=== PATIENT | female | born 1975 | race Caucasian/White ===

== ENCOUNTER 2023-06-08 12:08 | Emergency (ER) | payer BC, SELFPAY ==
[2023-06-08 12:15] VITALS: BP 95/76; PULSE 84; RESP 18; TEMP 36.6; O2SAT 100
--- NOTE | 2023-06-08 12:45 | DI.RAD_ITS ---
Exam(s) XR LUMBAR SPINE AP, LAT EXAM: XR LUMBAR SPINE AP, LAT CLINICAL HISTORY: fall. TECHNIQUE: 2D digital imaging was performed. Five views. COMPARISON: No exams were available for comparison FINDINGS: BONES: No fracture or destructive lesion. Vertebral body heights are maintained. facet hypertrophy L 5-S1. Small endplate osteophytes. DISKS: Intervertebral disc spaces are maintained. ALIGNMENT: Mild scoliosis SOFT TISSUE: 2 stones are visible projecting at the lower pole of the left kidney. Cholecystectomy c lips in right upper quadrant. IMPRESSION: No acute abnormality of the lumbar spine. Left nephrolithiasis. DATA REPOSITORY: RADIATION DOSE DELIVERED:
--- NOTE | 2023-06-08 12:47 | ED.GENADUL_ITS ---
Discharge Plan Disposition Patient Disposition: Home Discharge Details Clinical Impression: Low back pain Primary Care Provider: None,None ED Provider: Sheldon Bullock Home Meds and New Rx's Prescriptions: No Action verapamil 240 mg Tablet Extended Release 240 mg PO QAM metformin 500 mg Tablet 500 mg PO BID sumatriptan succinate 100 mg Tablet 100 mg PO PRN PRN trazodone 100 mg Tablet 100 mg PO QHS buspirone 30 mg Tablet 30 mg PO DAILY gabapentin 300 mg Capsule 300 mg PO TID omeprazole 20 mg Capsule,Delayed Release(Dr/Ec) 20 mg PO DAILY montelukast 10 mg Tablet 10 mg PO DAILY hydrochlorothiazide 25 mg Tablet 25 mg PO DAILY albuterol 90 mcg/actuation Aerosol 90 mcg INHALATION BID ergocalciferol (vitamin D2) 1,250 mcg (50,000 unit) Capsule 1,250 mcg PO QWEEK ondansetron 4 mg Tablet,Disintegrating 4 mg PO PRN PRN topiramate 100 mg Tablet 100 mg PO BID multivitamin Capsule 1 cap PO DAILY loratadine 10 mg Tablet 10 mg PO DAILY tizanidine 4 mg Capsule 4 mg PO DAILY Emgality Pen 120 mg/mL Pen Injector 120 mg SUBCUT QMONTH sertraline 150 mg Capsule 150 mg PO DAILY Discharge Instructions Instructions: Low Back Strain (ED) Additional Instructions: Please continue taking all your regular medications. Recommended to get some lidocaine patches that are [id number] and use once a day for 12 hours. Also recommend that you take Tylenol every 6 hours for the pain as well as some ibuprofen. Do not apply any cold packs or any heat over the lidocaine patch. You can do so after the lidocaine patch has been taken off. Please follow your primary care doctor as needed Medical Decision Making 47-year-old status post mechanical fall landing on her coccyx few days ago. Recurrent twisting injury yesterday. Presents with low back pain. X-rays obtained emergency department did not reveal any acute abnormalities. Patient arrived with 8 of 10 pain. Following some analgesia and lidocaine patch in the emergency department feels a lot more comfortable. Patient will be discharged home with lidocaine patches as well as NSAIDs. HPI General Date/Time Provider Initiated Documentation: 06/08/23 12:38 . HPI Narrative: States that she had a fall onto her coccyx few days ago resulting in low back pain. Then again yesterday she twisted in the mild and exacerbated her low back pain. States that she has been having worsening low back pain. No numbness. There is pain radiating down the left buttock area. No focal weakness. Patient is in pain and complaining of spastic issues to the low back. No incontinence. No fevers or chills Related Data Home Medications Medication Instructions Recorded Confirmed albuterol 90 mcg/actuation aerosol 90 mcg inhalation BID 06/08/23 06/08/23 inhaler buspirone 30 mg tablet 30 mg PO DAILY 06/08/23 06/08/23 ergocalciferol (vitamin D2) 1,250 1,250 mcg PO QWEEK 06/08/23 06/08/23 mcg (50,000 unit) capsule gabapentin 300 mg capsule 300 mg PO TID 06/08/23 06/08/23 galcanezumab-gnlm 120 mg/mL 120 mg subcut QMONTH 06/08/23 06/08/23 subcutaneous pen injector (Emgality Pen) hydrochlorothiazide 25 mg tablet 25 mg PO DAILY 06/08/23 06/08/23 loratadine 10 mg tablet 10 mg PO DAILY 06/08/23 06/08/23 metformin 500 mg tablet 500 mg PO BID 06/08/23 06/08/23 montelukast 10 mg tablet 10 mg PO DAILY 06/08/23 06/08/23 multivitamin 1 cap PO DAILY 06/08/23 06/08/23 omeprazole 20 mg capsule,delayed 20 mg PO DAILY 06/08/23 06/08/23 release ondansetron 4 mg disintegrating 4 mg PO PRN PRN 06/08/23 06/08/23 tablet sertraline 150 mg capsule 150 mg PO DAILY 06/08/23 06/08/23 sumatriptan succinate 100 mg tablet 100 mg PO PRN PRN 06/08/23 06/08/23 tizanidine 4 mg capsule 4 mg PO DAILY 06/08/23 06/08/23 topiramate 100 mg tablet 100 mg PO BID 06/08/23 06/08/23 trazodone 100 mg tablet 100 mg PO QHS 06/08/23 06/08/23 verapamil 240 mg tablet,extended 240 mg PO QAM 06/08/23 06/08/23 release Allergies Allergy/AdvReac Type Severity Reaction Status Date / Time No Known Allergies Allergy Unverified 06/08/23 12:20 General Stated Complaint: Nk/Back Pain TERESE: 3 Review of Systems Narrative: 10 point review of system is negative unless otherwise specified in the HPI PFSH All Active Problems (Updated 06/08/23 @ 14:40 by Sheldon Bullock MD) Low back pain (Acute) Social History Smoking risk assessment performed?: No Exam Narrative Exam Narrative: General: A,A Ox3, Calm, no apparent distress, well developed, pleasant and cooperative Head Size/Shape: normocephalic, atraumatic Eyes Pupils: PERRLA Extraocular Mobility: intact and symmetrical Conjunctiva: non-injected, anicteric, no discharge Ears, Nose, Throat Nares: patent bilaterally Oral Cavity: moist Neck: Supple Respiratory Respiratory Effort: no dyspnea Cardiovascular Normal cap refill Abdomen Inspection and Palpation: soft, non-tender, non-distended, no hepatosplenomegaly Musculoskeletal System Joints, Bones, and Muscles: no deformities Extremities: warm and well-perfused, no cyanosis, capillary refill <2 seconds Skin Skin Inspection: no rash, no lesions, no bruising Neurological Motor: normal tone, normal strength, moving all extremities equally Reflexes: deep tendon reflexes 2+ bilaterally, no clonus Psychiatric: good insight, good judgement, normal mood and affect Course Vital Signs Vital signs: Vital Signs Temperature 36.6 C 06/08/23 12:15 Pulse 84 06/08/23 12:15 Respiratory Rate 18 06/08/23 12:15 Blood Pressure 95/76 L 06/08/23 12:15 Pulse Oximetry 100 06/08/23 12:15 Temperature 36.6 C 06/08/23 12:15 Temperature Source Skin 06/08/23 12:15 Pulse 84 06/08/23 12:15 Respiratory Rate 18 06/08/23 12:15 Blood Pressure 95/76 L 06/08/23 12:15 Blood Pressure Position Sitting 06/08/23 12:15 Pulse Oximetry 100 06/08/23 12:15 Oxygen Delivery Method Room Air 06/08/23 12:15 Oxygen Flow Rate 0 06/08/23 12:15 Pain Level 8 06/08/23 12:15
[2023-06-08] MEDS: Ketorolac 30 MG/ML VIAL IM (13:31)
[2023-06-08] MEDS: Lidocaine 5% Patch 1 PATCH (13:31)
[2023-06-08] MEDS: diazePAM 5 MG TAB PO (13:31)
--- NOTE | 2023-06-08 14:23 | DI.VRAD_ITS ---
PROCEDURE INFORMATION: Exam: XR Lumbosacral Spine Exam date and time: 06/08/2023 2:01 PM Age: 47 years old Clinical indication: Pain and injury or trauma; Fall; Blunt trauma (contusions or hematomas); Low back pain TECHNIQUE: Imaging protocol: Radiologic exam of the lumbosacral spine. Views: 2 or 3 views. COMPARISON: No relevant prior studies available. FINDINGS: Bones/joints: Lumbar scoliosis. No acute fractures. Mild spondylosis changes. Soft tissues: Unremarkable. Organs: Left nephrolithiasis. IMPRESSION: No acute fracture. Dictated and Authenticated by: David Guzman MD. Ordering:SALLY Chung MD
== END 2023-06-08 15:03 | disposition home or self-care (01) ==
PROVIDERS: Emergency Provider Emergency Medicine
DX: M54.59 Other low back pain (principal); W19.XXXA Unspecified fall, initial encounter
CPT/HCPCS: 96372; 99284; 72100; J1885

== ENCOUNTER 2023-06-21 13:26 | Emergency (ER) | payer BC, SELFPAY ==
[2023-06-21 13:50] VITALS: BP 120/78; PULSE 86; RESP 18; TEMP 36.5; O2SAT 98
--- NOTE | 2023-06-21 14:42 | ED.GENADUL_ITS ---
Discharge Plan Disposition Patient Disposition: Home Condition: Stable Discharge Details Clinical Impression: Acute infectious diarrhea Primary Care Provider: None,None ED Provider: Tricia Lopez Home Meds and New Rx's Prescriptions: New metronidazole 500 mg tablet 500 mg PO BID Qty: 14 0RF azithromycin 500 mg tablet 500 mg PO DAILY 2 Days Qty: 2 0RF Rx Instructions: start on day 2 of therapy Continued verapamil 240 mg Tablet Extended Release 240 mg PO QAM metformin 500 mg Tablet 500 mg PO BID sumatriptan succinate 100 mg Tablet 100 mg PO PRN PRN trazodone 100 mg Tablet 100 mg PO QHS buspirone 30 mg Tablet 30 mg PO DAILY gabapentin 300 mg Capsule 300 mg PO TID omeprazole 20 mg Capsule,Delayed Release(Dr/Ec) 20 mg PO DAILY montelukast 10 mg Tablet 10 mg PO DAILY hydrochlorothiazide 25 mg Tablet 25 mg PO DAILY albuterol 90 mcg/actuation Aerosol 90 mcg INHALATION BID ergocalciferol (vitamin D2) 1,250 mcg (50,000 unit) Capsule 1,250 mcg PO QWEEK ondansetron 4 mg Tablet,Disintegrating 4 mg PO PRN PRN topiramate 100 mg Tablet 100 mg PO BID multivitamin Capsule 1 cap PO DAILY loratadine 10 mg Tablet 10 mg PO DAILY tizanidine 4 mg Capsule 4 mg PO DAILY Emgality Pen 120 mg/mL Pen Injector 120 mg SUBCUT QMONTH sertraline 150 mg Capsule 150 mg PO DAILY Discharge Instructions Instructions: Acute Diarrhea (ED) Additional Instructions: take antibiotics as prescribed even if you feel better clear liquids advance as tolerated. Referrals: None,None [Primary Care Provider] - (follow up with primary care provider if needed) Discharge Data Discharge Date/Time-TO BE ENTERED AT DEPARTURE: 06/21/23 18:01 Medical Decision Making <Flavio Warren NP - Last Filed: 06/22/23 08:51> Patient presenting to the emergency department for chief complaint of nausea vomiting diarrhea with some abdominal discomfort. Patient states that 6 days ago she drank untreated stream water and then within 24 hours she started having some nausea vomiting and diarrhea. She has tried [id number] Pepto-Bismol and unfortunately did not help symptoms and only has some worsening. She has started feeling weak and having some extremity tingling. Physical exam shows left upper and lower quadrant tenderness, ill-appearing patient with stable vital signs otherwise unremarkable exam. We will plan on checking labs, giving Zofran, and giving IV fluids. Have high suspicion of Giardia versus infectious diarrhea. At this time do not feel that CT advanced imaging is needed but will consider based upon labs. Reviewed patient's labs and CBC shows elevated monocytes and lymphocytes otherwise nondiagnostic, potassium slightly low at 3.1, patient does have significantly elevated anion gap at 16.4 with a creatinine of 1.1, AST slightly elevated at 59 otherwise nondiagnostic labs. We will give patient additional liter of IV fluids, will start patient on metronidazole given that we do not have any tinidazole. And will also start patient on azithromycin 500 daily for empiric treatment additional GI infection. Patient signed out to Tricia Lopez NP pending completion of IV fluids and p.o. challenge. report and care of patient received. patient remains hemodynamically stable and feeling better after one liter of fluid. requesting discharge home prior to receiving 2 nd liter. I think this is reasonable and will discharge as planned <Tricia Lopez NP - Last Filed: 06/21/23 17:53> Patient presenting to the emergency department for chief complaint of nausea vomiting diarrhea with some abdominal discomfort. Patient states that 6 days ago she drank untreated stream water and then within 24 hours she started having some nausea vomiting and diarrhea. She has tried [id number] Pepto-Bismol and unfortunately did not help symptoms and only has some worsening. She has started feeling weak and having some extremity tingling. Physical exam shows left upper and lower quadrant tenderness, ill-appearing patient with stable vital signs otherwise unremarkable exam. We will plan on checking labs, giving Zofran, and giving IV fluids. Have high suspicion of Giardia versus infectious diarrhea. At this time do not feel that CT advanced imaging is needed but will consider based upon labs. Reviewed patient's labs and CBC shows elevated monocytes and lymphocytes otherwise nondiagnostic, potassium slightly low at 3.1, patient does have significantly elevated anion gap at 16.4 with a creatinine of 1.1, AST slightly elevated at 59 otherwise nondiagnostic labs. We will give patient additional liter of IV fluids, will start patient on metronidazole given that we do not have any tinidazole. And will also start patient on azithromycin 500 daily for empiric treatment additional GI infection. report and care of patient received. patient remains hemodynamically stable and feeling better after one liter of fluid. requesting discharge home prior to receiving 2 nd liter. I think this is reasonable and will discharge as planned Medical Records Medical records reviewed: Yes I reviewed the patient's medical records. Lab Data Lab results reviewed: Yes I reviewed the patient's lab results. HPI <Flavio Warren NP - Last Filed: 06/22/23 08:51> General Mode of arrival: wheelchair . Date/Time Provider Initiated Documentation: 06/21/23 14:15 . Limitations to Documentation: no limitations . Information obtained by: patient, family and RN notes reviewed . History of Present Illness 47 year old F presents to the emergency department with the chief complaint of Vomiting diarrhea, described as moderate, Quality is described as aching and sharp, and is localized to the abdomen. Patient started experiencing this day(s) (5) and it has been constant. No relieving factors improve symptom(s), Other factors that worsen symptoms . Patient notes no other symptoms.. Patient did receive the following treatments prior to arrival, other Related Data Home Medications Medication Instructions Recorded Confirmed albuterol 90 mcg/actuation aerosol 90 mcg inhalation BID 06/08/23 06/21/23 inhaler buspirone 30 mg tablet 30 mg PO DAILY 06/08/23 06/21/23 ergocalciferol (vitamin D2) 1,250 1,250 mcg PO QWEEK 06/08/23 06/21/23 mcg (50,000 unit) capsule gabapentin 300 mg capsule 300 mg PO TID 06/08/23 06/21/23 galcanezumab-gnlm 120 mg/mL 120 mg subcut QMONTH 06/08/23 06/21/23 subcutaneous pen injector (Emgality Pen) hydrochlorothiazide 25 mg tablet 25 mg PO DAILY 06/08/23 06/21/23 loratadine 10 mg tablet 10 mg PO DAILY 06/08/23 06/21/23 metformin 500 mg tablet 500 mg PO BID 06/08/23 06/21/23 montelukast 10 mg tablet 10 mg PO DAILY 06/08/23 06/21/23 multivitamin 1 cap PO DAILY 06/08/23 06/21/23 omeprazole 20 mg capsule,delayed 20 mg PO DAILY 06/08/23 06/21/23 release ondansetron 4 mg disintegrating 4 mg PO PRN PRN 06/08/23 06/21/23 tablet sertraline 150 mg capsule 150 mg PO DAILY 06/08/23 06/21/23 sumatriptan succinate 100 mg tablet 100 mg PO PRN PRN 06/08/23 06/21/23 tizanidine 4 mg capsule 4 mg PO DAILY 06/08/23 06/21/23 topiramate 100 mg tablet 100 mg PO BID 06/08/23 06/21/23 trazodone 100 mg tablet 100 mg PO QHS 06/08/23 06/21/23 verapamil 240 mg tablet,extended 240 mg PO QAM 06/08/23 06/21/23 release azithromycin 500 mg tablet 500 mg PO DAILY 2 days #2 tabs 06/21/23 metronidazole 500 mg tablet 500 mg PO BID #14 tabs 06/21/23 Previous Rx's Medication Instructions Recorded azithromycin 500 mg tablet 500 mg PO DAILY 2 days #2 tabs 06/21/23 metronidazole 500 mg tablet 500 mg PO BID #14 tabs 06/21/23 Allergies Allergy/AdvReac Type Severity Reaction Status Date / Time No Known Allergies Allergy Unverified 06/08/23 12:20 General Stated Complaint: Nausea/Vomit/Diar TERESE: 4 Review of Systems <Flavio Warren NP - Last Filed: 06/22/23 08:51> Constitutional Constitutional: Denies chills, Denies fever(s), Reports headache(s) and Reports malaise ENT Ears, Nose, Mouth, and Throat: Reports headache(s) Cardiovascular Cardiovascular: Denies chest pain and Denies dyspnea Respiratory Respiratory: Denies dyspnea Gastrointestinal Gastrointestinal: Reports abdominal pain, Reports diarrhea, Reports nausea and Reports vomiting Musculoskeletal Musculoskeletal: Denies back pain and Reports tingling Integumentary/Breasts Skin/Breast: Denies erythema and Denies rash Neurologic Neurologic: Reports headache(s) and Reports tingling PFSH <Flavio Warren NP - Last Filed: 06/22/23 08:51> All Active Problems (Updated 06/21/23 @ 16:07 by Flavio Warren NP) Acute infectious diarrhea (Acute) PCOS (polycystic ovarian syndrome) (Acute) Low back pain (Acute) Social History Smoking/Tobacco Use Status: Never Smoking risk assessment performed?: Yes Alcohol Intake: never Substance use type: does not use Do you feel safe at home: Yes Do you feel safe in your relationship?: Yes Exam <Flavio Warren NP - Last Filed: 06/22/23 08:51> Const General: cooperative Orientation: alert, awake and oriented x3 Resp Effort & Inspection: normal respiratory effort and able to speak in complete sentences Auscultation: clear to auscultation bilaterally Cardio Rate: regular rate Rhythm: regular rhythm Heart Sounds: S1 normal and S2 normal GI Palpation: soft, not firm, no guarding, no masses, no pulsatile masses, not rigid and tender in the LLQ and in the LUQ Auscultation: normal bowel sounds Back/Spine/Pelvis Back: no CVA tenderness Neuro General: patient alert, patient awake, patient oriented x3, gait normal and moves all extremities Course <Flavio Warren NP - Last Filed: 06/22/23 08:51> Vital Signs Vital signs: Vital Signs Temperature 36.5 C 06/21/23 13:50 Pulse 86 06/21/23 13:50 Respiratory Rate 18 06/21/23 13:50 Blood Pressure 120/78 06/21/23 13:50 Pulse Oximetry 98 06/21/23 13:50 Temperature 36.5 C 06/21/23 13:50 Temperature Source Temporal Artery Scan 06/21/23 13:50 Pulse 86 06/21/23 13:50 Respiratory Rate 18 06/21/23 13:50 Blood Pressure 120/78 06/21/23 13:50 Blood Pressure Position Sitting 06/21/23 13:50 Pulse Oximetry 98 06/21/23 13:50 Oxygen Delivery Method Room Air 06/21/23 13:50 Oxygen Flow Rate 0 06/21/23 13:50 Pain Level 10 06/21/23 13:50 Sign Out <Flavio Warren NP - Last Filed: 06/22/23 08:51> Sign Out Data: Sign Out Comment: Patient pending p.o. challenge and reassessment after completion of IV fluids. Suspect discharge for infectious diarrhea with antibiotics already sent to pharmacy Last updated by Flavio Warren NP at 06/21/23 16:09
[2023-06-21] MEDS: Ondansetron 4 MG/2 ML VIAL IVP (15:07)
[2023-06-21] MEDS: Normal Saline 1,000 ML 1000 ML IV (15:07)
[2023-06-21 15:15] LABS: Abs Immature Grans 0.05 10^3/uL (0.0-0.06); Absolute Basophil Count 0.05 10^3/uL (0.0-0.2); Absolute Lymphocyte Count 4.21 10^3/uL (1.2-3.4); Absolute Monocyte Count 0.83 10^3/uL (0.1-0.8); Absolute Neutrophil Count 4.18 10^3/uL (1.2-6.7); Basophils % 0.5; Eosinophils % 1.1; HGB 15.2 g/dL (11.2-15.7); Immature Grans % 0.5; Lymphocytes % 44.7; MCH 28.5 pg (27.0-33.0); MCHC 33.8 % (32.0-36.0); MCV 84 fL (80-95); MPV 9.9 fL (8.0-11.0); Monocytes % 8.8; Neutrophils % 44.4; Platelet Count 350 10^3/uL (130-400); RBC 5.33 10^6/uL (3.93-5.22); RDW 14.9 % (11.7-14.6); RDW-SD 45.1 fL; WBC 9.42 10^3/uL (4.4-10.8)
[2023-06-21 15:31] LABS: ALT 41 U/L (14-59); AST 59 U/L (15-37); Alkaline Phosphatase 76 U/L (46-116); Anion Gap 16.4 mmol/L (3-11); BUN 13 mg/dL (7-18); Bilirubin, Total 0.7 mg/dL (0.2-1.0); CO2 20.6 mmol/L (21.0-32.0); CREATININE 1.1 mg/dL (0.55-1.02); Calcium 9.8 mg/dL (8.5-10.1); Chloride 101 mmol/L (98-107); Glucose 95 mg/dL (74-106); Magnesium 1.8 mg/dL (1.8-2.4); Potassium 3.1 mmol/L (3.5-5.1); Sodium 138 mmol/L (136-145); Total Protein 7.7 g/dL (6.4-8.2)
[2023-06-21] MEDS: metroNIDAZOLE 500 MG TAB PO (16:19)
[2023-06-21] MEDS: Potassium Chloride 20 MEQ TABCR 40 MEQ PO (16:19)
[2023-06-21] MEDS: Azithromycin 250 MG TAB 500 MG PO (16:19)
[2023-06-21 17:58] VITALS: BP 136/74; PULSE 88; RESP 16; O2SAT 96
[2023-06-21 18:00] LABS: Bilirubin Moderate (Negative); Blood Trace-intact (Negative); Clarity Sl Cloudy (Clear); Glucose Negative (Negative); Ketones 80 mg/dL (Negative); Leukocyte Esterase Negative (Negative); Nitrite Negative (Negative); Specific Gravity >= 1.030 (1.005-1.025); pH 6.5 (5-8)
[2023-06-21 18:05] LABS: Bacteria Few HPF (Negative); C & S Indicated? No/Sq. Contamination; Casts Negative LPF (Negative); Crystals Negative HPF (Negative); Epithelial Cells Many HPF (Negative); Mucus Moderate (Negative); RBC 0-2 HPF (0-2)
[2023-06-23 10:27] LABS: Campylobacter PCR Negative (Negative); Salmonella PCR Negative (Negative); Shiga Toxin PCR Negative (Negative); Shigella/Enteroinvasive Ecoli Negative (Negative)
== END 2023-06-21 18:01 | disposition home or self-care (01) ==
PROVIDERS: Nurse Practitioner Family; Emergency Provider Nurse Practitioner Acute Care
DX: A09 Infectious gastroenteritis and colitis, unspecified (principal); R11.2 Nausea with vomiting, unspecified
CPT/HCPCS: 80053; 87329; 87505; 96361; 96374; 99284; 81003; 81015; 83735; 85025; 87177; J2405

== ENCOUNTER 2024-08-04 12:29 | Outpatient (REF) | payer MEDICAID, SELFPAY | END 2024-08-04 12:30 | disposition home or self-care (01) | LOC: LBN 12:29 | PROVIDERS: PCP Family Medicine; Visit Provider Nurse Practitioner Family | DX: J02.9 Acute pharyngitis, unspecified (principal) | CPT/HCPCS: 87070 ==